=== PATIENT | female | born 1990 | race Caucasian/White ===

== ENCOUNTER 2017-04-09 10:02 | Inpatient (IN) | payer OTHER ==
[2017-04-09] VITALS (36 sets, daily range): BP systolic 102–163; BP diastolic 48–113; PULSE 92–191; RESP 16–20; TEMP 98.3–99.5
[~2017-04-09] VITALS: Ht 167.6 cm; Wt 113.9 kg
[2017-04-09] MEDS ORDERED: LACTATED RINGER'S 1000 ML INJ 1,000 ML IV PRN (11:18)
[2017-04-09] MEDS ORDERED: PREN29TA PO (11:19)
[2017-04-09 11:30] LABS: AUTOMATED NEUTROPHIL # 11.8 TH/MM3 (1.8-7.7); BASOPHIL % 0.2 % (0.0-2.0); EOSINOPHIL # 0.1 TH/MM3 (0-0.4); EOSINOPHIL % 0.4 % (0.0-4.0); HEMATOCRIT 33.6 % (35.0-46.0); HEMO FLAGS DIFF FINAL; LYMPH % 12.6 % (9.0-44.0); LYMPHOCYTE # 1.8 TH/MM3 (1.0-4.8); MEAN CELL VOLUME 76.7 FL (80.0-100.0); MEAN CORPUSCULAR HEMOGLOBIN 25.9 PG (27.0-34.0); MEAN CORPUSCULAR HGB CONC 33.7 % (32.0-36.0); MONO % 6.4 % (0.0-8.0); NEUT % 80.4 % (16.0-70.0); PLATELET COUNT 251 TH/MM3 (150-450); RED BLOOD COUNT 4.38 MIL/MM3 (4.00-5.30); RED CELL DISTRIBUTION WIDTH 14.7 % (11.6-17.2); WHITE BLOOD COUNT 14.6 TH/MM3 (4.0-11.0)
[2017-04-09] MEDS ORDERED: LIDOCAINE HCL 1% 50 ML VIAL INFIL PRN (11:30)
[2017-04-09] MEDS ORDERED: SODIUM CHLORID 0.9% 500 ML INJ 500 ML IV PRN (11:30)
[2017-04-09] MEDS ORDERED: MINERAL OIL 10 ML VIAL TOPICAL PRN (11:30)
[2017-04-09] MEDS ORDERED: CITRIC ACID-SODIUM CITRATE LIQ 30 ML UDC PO SCH (11:30)
[2017-04-09] MEDS ORDERED: LIDOCAINE HCL 1% 50 ML VIAL I-DERMAL PRN (11:30)
[2017-04-09] MEDS ORDERED: OXYTOCIN 30 UNITS-500ML PREMIX 500 ML IV ONE ×2 (11:30→20:45)
[2017-04-09] MEDS ORDERED: OXYTOCIN 30 UNITS-500ML PREMIX 500 ML IV SCH (11:30)
[2017-04-09 11:34] LABS: BACTERIA, URINE RARE /hpf; BLOOD, URINE MOD (NEG); COMMENT (UR) CULTURE INDICATED; CULTURE IF INDICATED CULTURE INDICATED; GLUCOSE,URINE NEG (NEG); KETONE, URINE 40 mg/dL (NEG); MUCUS URINE FEW /lpf (OCC); NITRITE,URINE NEG (NEG); PH, URINE 5.5 (5.0-8.5); SQUAMOUS EPITHELIAL CELL URINE 5 /hpf (0-5); URINE COLOR YELLOW (YELLW/STRAW)
[2017-04-09] MEDS ORDERED: SODIUM CHLOR 0.9% 1000 ML INJ 1,000 ML IV PRN (12:00)
[2017-04-09] MEDS ORDERED: fentaNYL 2MCG-BUPIV 0.125% INJ 100 ML ONE (12:02)
[2017-04-09] MEDS ORDERED: ePHEDrine/NS 25 MG/5 ML SYR ONE (12:02)
[2017-04-09] MEDS: LACTATED RINGER'S 1000 ML INJ 1,000 ML IV SCH ×2 (12:18→12:19)
[2017-04-09] MEDS ORDERED: DO NOT ADMINISTER ANTICOAGULANTS PRN (13:30)
[2017-04-09] MEDS ORDERED: ePHEDrine/NS 25 MG/5 ML SYR IV PRN (13:30)
[2017-04-09] MEDS ORDERED: NO SYSTEM NARCOTICS PRN (13:30)
[2017-04-09] MEDS ORDERED: fentaNYL 2MCG-BUPIV 0.125% 100 ML EPIDURAL SCH (13:30)
[2017-04-09] MEDS ORDERED: MISOPROSTOL 200 MCG TAB ONE (20:25)
[2017-04-09 20:35] LABS: BLOOD GAS BASE EXCESS -7.4 mmol/L (-2-2); BLOOD GAS O2 HGB SATURATION 12 % (90-100); CORD BLOOD GAS HCO3 21 mmol/L (21-29); CORD BLOOD GAS PCO2 75 mmHG (34-78); CORD BLOOD GAS PH 7.08 (7.14-7.42); CORD BLOOD GAS PO2 13 mmHG (3.0-40.0); DRAW SITE CORD BLOOD; STAT NO
--- NOTE | 2017-04-09 20:44 | PD.OB.DELI ---
Delivery Date: Apr 09, 2017 Anesthesia: Epidural Episiotomy: None Vaginal Delivery: Normal, Spontaneous Presentation: Occiput anterior Nuchal Cord: x1 Delayed cord clamping (45 sec): No Infant: Female One Minute : 3 Five Minute : 9 Weight: 7-13 Placenta: Spontaneous delivery, Intact, 3 vessel cord Laceration: Perineal laceration, 2 deg Repair: Chromic interrupted Alexandra Boone MD Apr 09, 2017 20:44
[2017-04-09] MEDS ORDERED: ALUMINUM/MAGNESIUM/SIMETH 30 ML CUP PO PRN (20:45)
[2017-04-09] MEDS ORDERED: WITCH HAZEL 50%/GLYCERIN 12.5% 40 PAD JAR TOPICAL PRN (20:45)
[2017-04-09] MEDS ORDERED: ONDANSETRON ODT 4 MG TAB PO PRN (20:45)
[2017-04-09] MEDS ORDERED: DOCUSATE SODIUM 50 MG/SENNA 8.6 MG TAB PO PRN (20:45)
[2017-04-09] MEDS ORDERED: BENZOCAINE 20% TOPICAL SPRAY 60 ML CAN TOPICAL PRN (20:45)
[2017-04-09] MEDS ORDERED: oxyCODONE/ACETAMINOPHEN 5 MG/325 MG TAB PO PRN ×2 (20:45)
[2017-04-09] MEDS ORDERED: SODIUM CHLORIDE 0.9% FLUSH 10 ML FLUSH IV FLUSH PRN (20:45)
[2017-04-09] MEDS ORDERED: ZOLPIDEM TARTRATE 5 MG TAB PO PRN (20:45)
[2017-04-09] MEDS ORDERED: ACETAMINOPHEN 325 MG TAB PO PRN (20:45)
[2017-04-09] MEDS ORDERED: OXYTOCIN 10 UNIT/ML AMP XX PRN (20:45)
[2017-04-09] MEDS: SODIUM CHLORIDE 0.9% FLUSH 10 ML FLUSH IV FLUSH SCH (21:00)
[2017-04-09] MEDS ORDERED: MEASLES, MUMPS, RUBELLA VACCINE 0.5 ML VIAL SQ ONE (22:00)
[2017-04-09] MEDS ORDERED: DIPHTH/TETANUS/ACEL PERTUSSIS (BOOSTER) 0.5 ML VIAL/PFS IM ONE (22:00)
[2017-04-09] MEDS: IBUPROFEN 600 MG TAB PO PRN (22:00)
[2017-04-10] MEDS: IBUPROFEN 600 MG TAB PO PRN ×2 (04:20→13:54)
[2017-04-10 08:00] VITALS: BP 122/72; PULSE 86; RESP 16; TEMP 98.3; O2SAT 97
[2017-04-10] MEDS: SODIUM CHLORIDE 0.9% FLUSH 10 ML FLUSH IV FLUSH SCH (10:10)
--- NOTE | 2017-04-10 11:21 | HHI.OB ---
Subjective Post Day: 1 Remarks pain controlled, mod lochia, roxanna po, +void/flatus Objective Vitals/I&O Vital Signs Date Time Temp Pulse Resp B/P Pulse Ox O2 Delivery O2 Flow Rate FiO2 04/10/17 08:00 98.3 86 16 122/72 04/09/17 23:48 99.4 101 16 125/75 04/09/17 23:48 99.4 101 16 125/75 04/09/17 23:48 99.4 101 16 125/75 04/09/17 23:01 105 136/75 04/09/17 22:50 99.4 04/09/17 22:49 18 04/09/17 22:48 92 131/70 04/09/17 22:31 113 159/89 04/09/17 22:30 18 04/09/17 22:16 102 163/86 04/09/17 22:00 113 152/88 04/09/17 21:45 109 130/87 04/09/17 21:31 123 116/64 04/09/17 21:30 99.5 18 04/09/17 21:15 119 131/86 04/09/17 21:00 18 04/09/17 21:00 121 121/66 04/09/17 20:47 125 119/88 04/09/17 20:31 130/85 04/09/17 20:23 114 138/74 04/09/17 19:49 128 148/68 04/09/17 19:18 128 147/69 04/09/17 19:15 98.3 04/09/17 19:15 18 04/09/17 17:46 159 152/113 04/09/17 17:30 19 04/09/17 17:30 143 128/85 04/09/17 17:16 140 130/48 04/09/17 17:15 20 04/09/17 17:00 18 04/09/17 17:00 141 113/68 04/09/17 16:45 132 117/52 04/09/17 16:45 18 04/09/17 16:31 130 114/54 04/09/17 16:30 18 04/09/17 16:15 18 04/09/17 16:15 191 102/83 04/09/17 16:00 18 04/09/17 16:00 105 109/67 04/09/17 15:45 133 119/65 04/09/17 15:41 18 04/09/17 15:30 142 128/76 04/09/17 15:23 98.6 18 04/09/17 15:15 18 04/09/17 15:15 132 113/52 04/09/17 15:01 102 115/65 04/09/17 15:01 18 04/09/17 12:19 18 Objective Remarks GENERAL: Well-nourished, well-developed patient. CARDIOVASCULAR: Regular rate and rhythm without murmurs, gallops, or rubs. RESPIRATORY: Breath sounds equal bilaterally. No accessory muscle use. ABDOMEN/GI: Abdomen soft, non-tender. Fundus: Firm, non-tender at umbilicus. GENITOURINARY: Light to moderate bleeding. EXTREMITIES: No cyanosis or edema, non-tender, without signs of DVT. Medications and IVs Current Medications Medications (Trade) Dose Ordered Sig/Isak Route Start Time Stop Time Status Last Admin Miscellaneous Information No systemic narcotics to be given except... UNSCH PRN .XX 04/09/17 13:30 04/10/17 13:29 Miscellaneous Information DO NOT ADMINISTER ANY ANTICOAGUL... UNSCH PRN .XX 04/09/17 13:30 04/10/17 13:29 (NS Flush) 2 ml BID IV FLUSH 04/09/17 21:00 (NS Flush) 2 ml UNSCH PRN IV FLUSH 04/09/17 20:45 (Tylenol) 650 mg Q4H PRN PO 04/09/17 20:45 (Motrin) 600 mg Q6H PRN PO 04/09/17 20:45 04/10/17 04:20 (Percocet 5-325 Mg) 1 tab Q4H PRN PO 04/09/17 20:45 04/10/17 04:21 (Percocet 5-325 Mg) 2 tab Q4H PRN PO 04/09/17 20:45 04/09/17 22:01 (Americaine 20% Top Spr) 1 spray Q4H PRN TOPICAL 04/09/17 20:45 04/10/17 04:20 (Tucks Pads) 1 applic QID PRN TOPICAL 04/09/17 20:45 04/10/17 04:20 (Roxann-Colace) 2 tab Q12H PRN PO 04/09/17 20:45 (Ambien) 5 mg HS PRN PO 04/09/17 20:45 (Mag-Al Plus Susp Liq) 15 ml Q8H PRN PO 04/09/17 20:45 (Zofran Odt) 4 mg Q6H PRN PO 04/09/17 20:45 Assessment/Plan Problem List: (1) Spontaneous vaginal delivery Plan: routine pp care Alexandra Boone MD Apr 10, 2017 11:21
[2017-04-10 19:40] VITALS: BP 117/69; PULSE 74; RESP 14; TEMP 98.7
[2017-04-11] MEDS: IBUPROFEN 600 MG TAB PO PRN ×2 (01:28→08:16)
[2017-04-11 08:30] VITALS: BP 126/89; PULSE 96; RESP 18; TEMP 98
[2017-04-11] MEDS: SODIUM CHLORIDE 0.9% FLUSH 10 ML FLUSH IV FLUSH SCH (09:00)
[2017-04-11] MEDS ORDERED: IBUP-232 PO (11:52)
--- NOTE | 2017-04-11 11:54 | HHI.DCPOC ---
Discharge Care Plan Diagnosis: (1) Spontaneous vaginal delivery Your Health Problems Are: Vaginal delivery Report Symptoms to Your Doctor -Temperature above 100.5 degrees -Redness, of incision or excessive or foul smelling drainage -Unusual pain or calf pain -Increased vaginal bleeding -Painful or difficulty urinating -Feelings of extreme sadness or anxiety after 2 weeks Goals to Promote Your Health * To prevent worsening of your condition and complications * To maintain your health at the optimal level Directions to Meet Your Goals Take your medications as prescribed Follow your dietary instruction Follow activity as directed Ensure plenty of rest for recovery Drink fluids for hydration Keep your appointments as scheduled Take your immunizations and boosters as scheduled If your symptoms worsen call your PCP, if no PCP go to Urgent Care Center or Emergency Room Smoking is Dangerous to Your Health. Avoid second hand smoke Call the 24-hour crisis hotline for domestic abuse at Alexandra Boone MD Apr 11, 2017 11:54
--- NOTE | 2017-04-11 12:00 | HHI.DS ---
Admission Date Apr 09, 2017 at 10:02 Admitting Diagnosis Diagnosis: (1) Spontaneous vaginal delivery Diagnosis: Principal Delivery Date: Apr 09, 2017 Vaginal Delivery: Normal : Female Hospital Course pt was admitted for induction. she had an . by ppd 2, pt was voiding and passing gas with good pain control. Pt Condition on Discharge: Stable Discharge Disposition: Discharge Home Discharge Instructions Diet Instructions: As Tolerated, No Restrictions Additional Diet Instructions: Drink at least 8 - 16 oz bottles of water a day Activities You Can Perform: Shower Only-No Bath, Sitz Bath Activities to Avoid: Lifting/Bending, Sexual Activity Additional Activity Instruc.: No driving until off pain medications Do not lift anything heavier than your baby in an carrier Alexandra Boone MD Apr 11, 2017 12:00
== END 2017-04-11 13:07 | disposition home or self-care (01) | DRG 775 ==
LOC: H2EB 10:02 → H1EA 23:31
PROVIDERS: ADMIT Obstetrics & Gynecology; ATTEND Obstetrics & Gynecology
PROC: 10E0XZZ Delivery of Products of Conception, External Approach (ICD-10-PCS; principal; 2017-04-09)
PROC: 0KQM0ZZ Repair Perineum Muscle, Open Approach (ICD-10-PCS; 2017-04-09)
PROC: 3E033VJ Introduction of Other Hormone into Peripheral Vein, Percutaneous Approach (ICD-10-PCS; 2017-04-09)
PROC: 00HU33Z Insertion of Infusion Device into Spinal Canal, Percutaneous Approach (ICD-10-PCS; 2017-04-09)
PROC: 3E0R3CZ (ICD-10-PCS; 2017-04-09)
DX: O69.81X0 Labor and delivery complicated by cord around neck, without compression, not applicable or unspecified (principal); O70.1 Second degree perineal laceration during delivery; Z3A.40 40 weeks gestation of pregnancy; Z37.0 Single live birth
CPT/HCPCS: 81001; 82805; 85025; 85461; 86703; 86850; 86900; 86901; 87086; 90384; 90715; J2590; J2790; J7040; J7120